=== PATIENT | female | born 1960 | race Caucasian/White ===

== ENCOUNTER 2018-06-25 07:41 | Day surgery (SDC) | payer OTHER ==
--- OUTSIDE RECORDS SUMMARY | 2018-06-25 07:45 | XMS REPORT | Clinical Summary ---
:1960 Author Organization [facility] Address [address] [place] [address] Care Team Providers Name Role Phone Dave Viveros MD Primary Care Provider Allergies No Known Allergies Medications Medication Sig Dispensed Refills Start Date End Date Status meloxicam (MOBIC) 15 Take 15 mg by 0 Active mg tablet mouth daily. escitalopram (LEXAPRO) Take 10 mg by 0 Active 10 MG tablet mouth daily. estradiol (ESTRACE) 1 Take 1 mg by 0 Active MG tablet mouth daily. levothyroxine Take 88 mcg by 0 Active (SYNTHROID, LEVOXYL) mouth every 88 mcg tablet morning. pantoprazole Take 40 mg by 0 Active (PROTONIX) 40 MG EC mouth daily. tablet cycloSPORINE Administer 1 0 Active (RESTASIS) 0.05 % drop to both ophthalmic emulsion eyes 2 (two) times a day. fluticasone (FLONASE) 2 sprays by Each 0 Active 50 mcg/actuation nasal Nare route spray daily. clonAZEPAM (KlonoPIN) Take 0.5 mg by 0 Active 0.5 MG tablet mouth nightly as needed for seizures. cyclobenzaprine Take 5 mg by 0 Active (FLEXERIL) 5 mg tablet mouth 2 (two) times a day as needed for muscle spasms (at night). losartan (COZAAR) 25 Take 25 mg by 0 Active MG tablet mouth daily. meclizine (ANTIVERT) Take 1 tablet 30 tablet 0 11/25/2017 12/25/2017 25 mg tablet (25 mg total) by mouth 3 (three) times a day as needed for dizziness for up to 30 days. ondansetron ODT Take 1 tablet (4 30 tablet 0 11/25/2017 12/02/2017 (ZOFRAN ODT) 4 MG mg total) by disintegrating tablet mouth every 8 (eight) hours as needed for nausea or vomiting for up to 7 days. Active Problems Problem Noted Date Intractable episodic headache 12/30/2017 Encounters Date Type Specialty Care Team Description 12/31/2017 Telephone Ophthalmology Mariza Serrato MD 12/30/2017 - Emergency Neurology [place], Intractable episodic headache, unspecified headache type (Primary Dx); 12/31/2017 MD Thomas Intractable episodic cluster headache Rizwan Lucas MD 11/25/2017 Emergency Emergency Medicine [facility] Acute nonintractable headache, unspecified headache type (Primary Dx); MD Ethel Dizziness after 06/24/2017 Family History Medical History Relation Name Comments Diabetes Father Heart disease Father Hypertension Father Hyperlipidemia Mother Relation Name Status Comments Father Alive Mother Alive Social History Tobacco Use Types Packs/Day Years Used Date Never Smoker Smokeless Tobacco: Never Used Alcohol Use Drinks/Week oz/Week Comments No Sex Assigned at Date Recorded Not on file Job Start Date Occupation Industry Not on file Not on file Not on file Travel History Travel Start Travel End No recent travel history available. Last Filed Vital Signs Vital Sign Reading Time Taken Blood Pressure 129/60 12/31/2017 7:31 PM CDT Pulse 72 12/31/2017 7:31 PM CDT Temperature 36.3 C (97.3 F) 12/31/2017 4:29 PM CDT Respiratory Rate 18 12/31/2017 7:31 PM CDT Oxygen Saturation 96% 12/31/2017 7:31 PM CDT Inhaled Oxygen Concentration - - Weight 79.4 kg (175 lb) 12/30/2017 8:37 PM CDT Height 160 cm (5' 3") 12/30/2017 3:25 PM CDT Body Mass Index 31 12/30/2017 8:37 PM CDT Plan of Treatment Health Maintenance Due Date Last Done Comments CERVICAL CANCER SCREENING 1983 BREAST CANCER SCREENING 2012 COLON CANCER SCREENING 2012 SHINGLES VACCINES (#1) 2012 INFLUENZA VACCINE 10/21/2018 12/21/2016 Procedures Procedure Name Priority Date/Time Associated Comments Diagnosis SYPHILIS TREPONEMAL Routine 12/31/2017 2:35 Results for this IGG PM CDT procedure are in the results section. TROPONIN Routine 12/31/2017 2:35 Results for this PM CDT procedure are in the results section. SEDIMENTATION RATE STAT 12/30/2017 11:15 Results for this PM CDT procedure are in the results section. MRI BRAIN W WO STAT 12/30/2017 10:02 Results for this CONTRAST PM CDT procedure are in the results section. MRA NECK W WO CONTRAST STAT 12/30/2017 9:50 Results for this PM CDT procedure are in the results section. MRA HEAD WO CONTRAST STAT 12/30/2017 9:20 Results for this PM CDT procedure are in the results section. C-REACTIVE PROTEIN STAT 12/30/2017 8:59 Results for this PM CDT procedure are in the results section. URINE DRUGS OF ABUSE Routine 12/30/2017 7:29 Results for this SCREEN PM CDT procedure are in the results section. CT HEAD WO CONTRAST STAT 12/30/2017 5:00 Results for this PM CDT procedure are in the results section. ESTIMATED GFR STAT 12/30/2017 3:50 Results for this PM CDT procedure are in the results section. COMPREHENSIVE STAT 12/30/2017 3:50 Results for this METABOLIC PANEL PM CDT procedure are in the results section. HC COMPLETE BLD COUNT STAT 12/30/2017 3:50 Results for this W/AUTO DIFF PM CDT procedure are in the results section. CT HEAD WO CONTRAST STAT 11/25/2017 2:11 Results for this PM CDT procedure are in the results section. SEDIMENTATION RATE STAT 11/25/2017 1:51 Results for this PM CDT procedure are in the results section. C-REACTIVE PROTEIN STAT 11/25/2017 1:51 Results for this PM CDT procedure are in the results section. ZZESTIMATED GFR STAT 11/25/2017 1:51 Results for this PM CDT procedure are in the results section. B NATRIURETIC PEPTIDE STAT 11/25/2017 1:51 Results for this PM CDT procedure are in the results section. TROPONIN STAT 11/25/2017 1:51 Results for this PM CDT procedure are in the results section. COMPREHENSIVE STAT 11/25/2017 1:51 Results for this METABOLIC PANEL PM CDT procedure are in the results section. HC COMPLETE BLD COUNT STAT 11/25/2017 1:51 Results for this W/AUTO DIFF PM CDT procedure are in the results section. ECG 12-LEAD STAT 11/25/2017 1:24 Results for this PM CDT procedure are in the results section. after 06/24/2017 Results Syphilis treponemal IgG (12/31/2017 2:35 PM CDT) Syphilis treponemal IgG Non-reactiveComment: Non-reactive [facility] DEPARTMENT OF Non-reactive: No PATHOLOGY AND GENOMIC serological evidence of MEDICINE Syphilis infection Specimen Serum Performing Organization Address [facility] Phone Number [facility] DEPARTMENT OF PATHOLOGY AND [address] [place] [address] Troponin (12/31/2017 2:35 PM CDT)Only the most recent of2 resultswithin the time period is included. Troponin <0.30 0.00 - 0.30 ng/mL [facility] DEPARTMENT OF PATHOLOGY Comment: AND GENOMIC MEDICINE 0.30 - 1.49 ng/mlMay indicate increased risk of acute coronary syndrome. >=1.5 ng/mlConsistent with acute myocardial infarction. The diagnostic value of a single normal or non-diagnostic result is questionable.Serial samples at 2-6 hour intervals are required to rule out acute myocardial injury. Specimen Plasma specimen Performing Organization Address [facility] Phone Number [facility] DEPARTMENT OF PATHOLOGY AND [address] [place] [address] Sedimentation rate (12/30/2017 11:15 PM CDT)Only the most recent of2 resultswithin the time period is included. Sedimentation rate 14 0 - 20 mm/hr [facility] DEPARTMENT OF PATHOLOGY AND [employer] [facility] Specimen Blood Performing Organization Address [facility] Phone Number [facility] DEPARTMENT OF PATHOLOGY AND [address] [place] [address] MRI Brain W Wo Contrast (12/30/2017 10:02 PM CDT) Narrative Performed At EXAMINATION: MRI BRAIN W WO CONTRAST [facility] CLINICAL HISTORY: Focal neuro deficit6 hrsstroke suspected COMPARISON:Head CT 12/30/2017. TECHNIQUE: Multiplanar and multisequence MRI imaging of the brain was obtained with and without contrast. FINDINGS: No diffusion restriction to suggest acute ischemia. Pre and postcontrast enhanced images shows no intracranial mass or abnormal enhancing brain lesion. No abnormal susceptibility to suggest intracranial hemorrhage. Brain volume is normal. Incidental note of a prominent perivascular space in the right parietal subcortical white matter. No acute hydrocephalus or extra-axial fluid collection identified. Midline structures are maintained. Major flow voids in the skull base are identified. Incidental very small left medial parietal deep venous anomaly. Paranasal sinuses and mastoid air cells are clear. Orbits are normal. Visualized soft tissue shows no gross abnormalities. IMPRESSION: No acute intracranial abnormality. No acute ischemia or intracranial hemorrhage. [facility]-[id number] Procedure Note Interface, Radiology Results Incoming - 12/30/2017 10:22 PM CDT EXAMINATION: MRI BRAIN W WO CONTRAST CLINICAL HISTORY: Focal neuro deficit 6 hrs stroke suspected COMPARISON: Head CT 12/30/2017. TECHNIQUE: Multiplanar and multisequence MRI imaging of the brain was obtained with and without contrast. FINDINGS: No diffusion restriction to suggest acute ischemia. Pre and postcontrast enhanced images shows no intracranial mass or abnormal enhancing brain lesion. No abnormal susceptibility to suggest intracranial hemorrhage. Brain volume is normal. Incidental note of a prominent perivascular space in the right parietal subcortical white matter. No acute hydrocephalus or extra-axial fluid collection identified. Midline structures are maintained. Major flow voids in the skull base are identified. Incidental very small left medial parietal deep venous anomaly. Paranasal sinuses and mastoid air cells are clear. Orbits are normal. Visualized soft tissue shows no gross abnormalities. IMPRESSION: No acute intracranial abnormality. No acute ischemia or intracranial hemorrhage. [facility]-[id number] Performing Organization Address City/State/Zipcode Phone Number [facility] [address] [place] [address] MRA Neck W Wo Contrast (12/30/2017 9:50 PM CDT) Narrative Performed At EXAMINATION:MRA NECK W WO CONTRAST [facility] CLINICAL HISTORY:Headachesuddencarotid vertebral dissection suspected COMPARISON:None. TECHNIQUE: Neck MRA using 2D and 3D dwfc-ce-tdsuzz technique with without contrast with multi-planar MIP and 3D reconstruction. Multiplanar T1 fat sat images were also obtained. FINDINGS: The imaged bilateral cervical carotid and vertebral arterial systems appear widely patent without evidence of stenosis (0% by NASCET criteria) or dissection. Dominant right vertebral artery. IMPRESSION: Unremarkable neck MRA with no significant carotid or vertebral artery stenosis. [id number] Procedure Note Interface, Radiology Results Incoming - 12/30/2017 10:10 PM CDT EXAMINATION: MRA NECK W WO CONTRAST CLINICAL HISTORY: Headache sudden carotid vertebral dissection suspected COMPARISON: None. TECHNIQUE: Neck MRA using 2D and 3D ztqc-ex-[id number] technique with without contrast with multi-planar MIP and 3D reconstruction. Multiplanar T1 fat sat images were also obtained. FINDINGS: The imaged bilateral cervical carotid and vertebral arterial systems appear widely patent without evidence of stenosis (0% by NASCET criteria) or dissection. Dominant right vertebral artery. IMPRESSION: Unremarkable neck MRA with no significant carotid or vertebral artery stenosis. [id number] Performing Organization Address [facility] Phone Number [facility] [address] [place] [address] MRA Head Wo Contrast (12/30/2017 9:20 PM CDT) Addenda Addendum by Santiago Bradshaw MD on 12/31/2017 12:48 AM ADDENDUM #1 A saccular aneurysm is not identified. Narrative Performed At EXAMINATION: MRA HEAD WO CONTRAST [facility] CLINICAL HISTORY: Headachechronicneuro deficit COMPARISON:None TECHNIQUE: Syuf-hm-aysbou MRA images of the [place] vessels were obtained with multiplanar and 3-D reconstructive algorithms. FINDINGS: The internal carotid arteries and bifurcations into the middle cerebral and anterior cerebral arteries are patent without significant stenosis. The vertebral arteries and basilar artery as well as the posterior cerebral arteries are patent with no significant stenosis. IMPRESSION: Unremarkable MRA of the [place] with no significant abnormality. [facility]-[id number] Procedure Note Interface, Radiology Results Incoming - 12/30/2017 10:05 PM CDT EXAMINATION: MRA HEAD WO CONTRAST CLINICAL HISTORY: Headache chronic neuro deficit COMPARISON: None TECHNIQUE: Clxh-wy-emqoah MRA images of the [place] vessels were obtained with multiplanar and 3-D reconstructive algorithms. FINDINGS: The internal carotid arteries and bifurcations into the middle cerebral and anterior cerebral arteries are patent without significant stenosis. The vertebral arteries and basilar artery as well as the posterior cerebral arteries are patent with no significant stenosis. IMPRESSION: Unremarkable MRA of the [place] with no significant abnormality. [facility]-[id number] Performing Organization Address [facility] Phone Number [facility] [address] [place] [address] C-reactive protein (12/30/2017 8:59 PM CDT)Only the most recent of2 resultswithin the time period is included. CRP 1.97 (H) 0.00 - 0.50 mg/dL [facility] DEPARTMENT OF PATHOLOGY AND GENOMIC MEDICINE Specimen Plasma specimen Performing Organization Address [facility] Phone Number [facility] DEPARTMENT OF PATHOLOGY AND [address] [place] [address] Urine drugs of abuse screen (12/30/2017 7:29 PM CDT) Amphetamine screen, urine Negative [facility] DEPARTMENT OF PATHOLOGY AND GENOMIC MEDICINE Barbiturate screen, urine Negative [facility] DEPARTMENT OF PATHOLOGY AND GENOMIC MEDICINE Benzodiazepine screen, Negative [facility] DEPARTMENT OF urine PATHOLOGY AND GENOMIC MEDICINE Cannabinoid screen, urine Negative [facility] DEPARTMENT OF PATHOLOGY AND GENOMIC MEDICINE Cocaine screen, urine Negative [facility] DEPARTMENT OF PATHOLOGY AND GENOMIC MEDICINE Methadone metabolite Negative [facility] DEPARTMENT OF (EDDP), urine PATHOLOGY AND GENOMIC MEDICINE Opiates screen, urine Positive (A) [facility] DEPARTMENT OF PATHOLOGY AND GENOMIC MEDICINE Oxycodone screen, urine Negative [facility] DEPARTMENT OF PATHOLOGY AND GENOMIC MEDICINE Phencyclidine screen, urine Negative [facility] DEPARTMENT OF PATHOLOGY AND GENOMIC MEDICINE Tricyclic screen, urine Negative [facility] DEPARTMENT OF Comment: PATHOLOGY AND GENOMIC Drug screen minimum concentration of detectability MEDICINE Fgurfdkqkima4239 ng/mL Barbiturates 200 ng/mL Foqwyhyjdrqispd183 ng/mL Bthhwub478 ng/mL Jupjdqadl443 ng/mL Kbmojot923 ng/mL Felkgkfom224 ng/mL Phencyclidine 25 ng/mL Fvowpemxvguv61 ng/mL Obuvybcthk2413 ng/mL Negative test results indicates presumptive evidence of lack of clinically significant drug concentration in this urine specimen. Positive test results are presumptive evidence of clinically significant drug concentration in this urine specimen. Testing performed for medical purposes only. Specimen Urine Performing Organization Address [facility] Phone Number [facility] DEPARTMENT OF PATHOLOGY AND [address] [place] [address] CT Head Wo Contrast (12/30/2017 5:00 PM CDT)Only the most recent of2 resultswithin the time period is included. Narrative Performed At EXAMINATION: CT HEAD WO CONTRAST [facility] CLINICAL HISTORY: headache COMPARISON:CT brain from November 25, 2017 TECHNIQUE: Noncontrast enhanced images of the brain were obtained from the skull base to the vertex. Both soft tissue and bone reconstruction algorithms were performed.CT scans are performed using radiation dose reduction techniques. Technical factors are evaluated and adjusted to ensure appropriate moderation of exposure. Automated dose management technology is applied to adjust radiation exposure while achieving a diagnostic quality image. FINDINGS: Artifacts obscure some details. There is no definite evidence of acute intracranial hemorrhage or mass, hydrocephalus or midline shift, stroke or thrombus in the vessels. There is nonspecific enlargement of the extra axial space greater in the anterior region. There is relatively stable small area of decreased density in the right parietal subcortical white matter which could be from a perivascular space or small region of chronic change among other etiologies. There is minimal calcification of waller of some of the arteries. The orbits, sinuses and mastoid air cells do not show acute abnormality. There is stable nonspecific increased bone density. IMPRESSION: No acute intracranial abnormality identified. [facility]-[id number] Procedure Note Interface, Radiology Results Incoming - 12/30/2017 5:23 PM CDT EXAMINATION: CT HEAD WO CONTRAST CLINICAL HISTORY: headache COMPARISON: CT brain from November 25, 2017 TECHNIQUE: Noncontrast enhanced images of the brain were obtained from the skull base to the vertex. Both soft tissue and bone reconstruction algorithms were performed. CT scans are performed using radiation dose reduction techniques. Technical factors are evaluated and adjusted to ensure appropriate moderation of exposure. Automated dose management technology is applied to adjust radiation exposure while achieving a diagnostic quality image. FINDINGS: Artifacts obscure some details. There is no definite evidence of acute intracranial hemorrhage or mass, hydrocephalus or midline shift, stroke or thrombus in the vessels. There is nonspecific enlargement of the extra axial space greater in the anterior region. There is relatively stable small area of decreased density in the right parietal subcortical white matter which could be from a perivascular space or small region of chronic change among other etiologies. There is minimal calcification of [place] of some of the arteries. The orbits, sinuses and mastoid air cells do not show acute abnormality. There is stable nonspecific increased bone density. IMPRESSION: No acute intracranial abnormality identified. [facility]-[id number] Performing Organization Address City/State/Zipcode Phone Number [facility] [address] [place] [address] Estimated GFR (12/30/2017 3:50 PM CDT) Estimated GFR 80 mL/min/1.73 m2 [facility] DEPARTMENT OF Comment: PATHOLOGY AND GENOMIC CatergoryUnitsInterpretation MEDICINE G1 >=90 Normal or high G2 60-89Mildly decreased N1j29-89Edbtkh to moderately decreased L7b90-06Tkgsyrvivy to severely decreased G4 15-29Severely decreased G5 <15Kidney failure The eGFR was calculated using the Chronic Kidney Disease Epidemiology Collaboration (CKD-EPI) equation. Interpretation is based on recommendations of the National Kidney Foundation-Kidney Disease Outcomes Quality Initiative (NKF-KDOQI) published in 2014. Specimen Plasma specimen Performing Organization Address City/State/Zipcode Phone Number [facility] DEPARTMENT OF PATHOLOGY AND [address] [place] [address] [facility] CBC with platelet and differential (12/30/2017 3:50 PM CDT)Only the most recent of2 resultswithin the time period is included. WBC 9.42 4.50 - 11.00 k/uL [facility] DEPARTMENT OF PATHOLOGY AND GENOMIC MEDICINE RBC 3.93 (L) 4.20 - 5.50 m/uL [facility] DEPARTMENT OF PATHOLOGY AND GENOMIC MEDICINE HGB 12.8 12.0 - 16.0 g/dL [facility] DEPARTMENT OF PATHOLOGY AND GENOMIC MEDICINE HCT 36.9 (L) 37.0 - 47.0 % [facility] DEPARTMENT OF PATHOLOGY AND GENOMIC MEDICINE MCV 93.9 82.0 - 100.0 fL [facility] DEPARTMENT OF PATHOLOGY AND GENOMIC MEDICINE MCH 32.6 27.0 - 34.0 pg [facility] DEPARTMENT OF PATHOLOGY AND GENOMIC MEDICINE MCHC 34.7 31.0 - 37.0 g/dL [facility] DEPARTMENT OF PATHOLOGY AND GENOMIC MEDICINE RDW - SD 42.0 37.0 - 55.0 fL [facility] DEPARTMENT OF PATHOLOGY AND GENOMIC MEDICINE MPV 9.1 8.8 - 13.2 fL [facility] DEPARTMENT OF PATHOLOGY AND GENOMIC MEDICINE Platelet count 230 150 - 400 k/uL [facility] DEPARTMENT OF PATHOLOGY AND GENOMIC MEDICINE Nucleated RBC 0.00 /100 WBC [facility] DEPARTMENT OF PATHOLOGY AND GENOMIC MEDICINE Neutrophils 61.0 39.0 - 69.0 % [facility] DEPARTMENT OF PATHOLOGY AND GENOMIC MEDICINE Lymphocytes 29.4 25.0 - 45.0 % [facility] DEPARTMENT OF PATHOLOGY AND GENOMIC MEDICINE Monocytes 7.1 0.0 - 10.0 % [facility] DEPARTMENT OF PATHOLOGY AND GENOMIC MEDICINE Eosinophils 2.0 0.0 - 5.0 % [facility] DEPARTMENT OF PATHOLOGY AND GENOMIC MEDICINE Basophils 0.3 0.0 - 1.0 % [facility] DEPARTMENT OF PATHOLOGY AND GENOMIC MEDICINE Immature granulocytes 0.2Comment: 0.0 - 1.0 % [facility] DEPARTMENT OF "Immature PATHOLOGY AND GENOMIC granulocytes" MEDICINE (promyelocytes, myelocytes, metamyelocytes) Specimen Blood Performing Organization Address City/[facility] Phone Number [facility] DEPARTMENT PATHOLOGY AND [address] [place] [address] [facility] MEDICINE Comprehensive metabolic panel (12/30/2017 3:50 PM CDT)Only the most recent of2 resultswithin the time period is included. Sodium 140 135 - 148 mEq/L [facility] DEPARTMENT OF PATHOLOGY AND GENOMIC MEDICINE Potassium 4.0 3.5 - 5.0 mEq/L [facility] DEPARTMENT OF PATHOLOGY AND GENOMIC MEDICINE Chloride 100 98 - 112 mEq/L [facility] DEPARTMENT OF PATHOLOGY AND GENOMIC MEDICINE CO2 29 24 - 31 mEq/L [facility] DEPARTMENT OF PATHOLOGY AND GENOMIC MEDICINE Anion gap 11@ANIO 7 - 15 mEq/L [facility] DEPARTMENT OF PATHOLOGY AND GENOMIC MEDICINE BUN 15 6 - 20 mg/dL [facility] DEPARTMENT OF PATHOLOGY AND GENOMIC MEDICINE Creatinine 0.82 0.50 - 0.90 mg/dL [facility] DEPARTMENT OF PATHOLOGY AND GENOMIC MEDICINE Glucose 113 (H) 65 - 99 mg/dL [facility] DEPARTMENT OF PATHOLOGY AND GENOMIC MEDICINE Calcium 9.4 8.3 - 10.2 mg/dL [facility] DEPARTMENT OF PATHOLOGY AND GENOMIC MEDICINE Protein 6.9 6.3 - 8.3 g/dL [facility] DEPARTMENT OF Comment: PATHOLOGY AND GENOMIC 4.6-7.0 g/dL MEDICINE 1 week 4.4-7.6 g/dL 7 months-1year5.1-7.3 g/dL 1-2 years5.6-7.5 g/dL >3 years6.0-8.0 g/dL 18-150 6.3-8.3 g/dL Albumin 3.4 (L) 3.5 - 5.0 g/dL [facility] DEPARTMENT OF PATHOLOGY AND GENOMIC MEDICINE A/G ratio 1.0 0.7 - 3.8 [facility] DEPARTMENT OF PATHOLOGY AND GENOMIC MEDICINE Alkaline phosphatase 94 35 - 104 U/L [facility] DEPARTMENT OF PATHOLOGY AND GENOMIC MEDICINE AST 28 10 - 35 U/L [facility] DEPARTMENT OF PATHOLOGY AND GENOMIC MEDICINE ALT 34 5 - 50 U/L [facility] DEPARTMENT OF PATHOLOGY AND GENOMIC MEDICINE Total bilirubin <0.2 0.0 - 1.2 mg/dL [facility] DEPARTMENT OF PATHOLOGY AND GENOMIC MEDICINE Specimen Plasma specimen Performing Organization Address City/[facility]/Zipcode Phone Number [facility] DEPARTMENT OF PATHOLOGY AND [address] Estimated GFR (11/25/2017 1:51 PM CDT) GFR Non Af Amer 87 mL/min/1.73 m2 [facility] DEPARTMENT OF PATHOLOGY AND GENOMIC MEDICINE GFR Af Amer >90 mL/min/1.73 m2 [facility] DEPARTMENT OF Comment: PATHOLOGY AND GENOMIC Chronic kidney disease: <60 mL/min/1.73m2 MEDICINE Kidney failure: <15 mL/min/1.73m2 The estimated GFR is calculated from the IDMS-traceable Modification of Diet in Renal Disease Equation. The accuracy of the calculation is poor when the creatinine is normal. Calculated values >90 mL/min/1.73m2 are not reported. This equation has not been validated in children (<18 years), women, the elderly (>70 years), or ethnic groups other than Caucasians and Americans. Specimen Plasma specimen Performing Organization Address City/State/Zipcode Phone Number [facility] DEPARTMENT OF PATHOLOGY AND [address] B natriuretic peptide (11/25/2017 1:51 PM CDT) BNP 12 0 - 100 pg/mL [facility] DEPARTMENT OF PATHOLOGY AND GENOMIC MEDICINE Specimen Blood Performing Organization Address City/[facility] Phone Number [facility] DEPARTMENT OF PATHOLOGY AND [address] [place] [address] ECG 12 lead (11/25/2017 1:24 PM CDT) Ventricular rate 81 [facility] Atrial rate 81 [facility] AL interval 152 [facility] QRSD interval 94 [facility] QT interval 396 [facility] QTC interval 460 [facility] P axis 1 52 [facility] QRS axis 1 41 [facility] T wave axis 25 [facility] MUSE EKG impression Normal sinus rhythm-Normal ECG-No previous [facility] MUSE ECGs available- Performing Organization Address City/State/Zipcode Phone Number [facility] [address] [place] [address] after 06/24/2017 Insurance Payer Benefit Plan / Group Subscriber ID Type Phone Address [employer] [place] OPEN ACCESS/NETWORK xxxxxxxxxxx HMO Advance Directives Patient has advance care planning documents on file. For more information, please contact:Chaka [id number] [place] [address]
[2018-06-25] MEDS: OXYMETAZOLINE HCL 0.05% 15ML NAS ONE ×3 (07:53→08:05)
[2018-06-25] MEDS ORDERED: Ringers Lactate 1,000 ML IV ONE (08:02)
[2018-06-25] MEDS ORDERED: LIDOCAINE 1.5% W/EPI AMP 5 ML ONE (08:16)
[2018-06-25] MEDS ORDERED: OXYMETAZOLINE HCL 0.05% 15ML NAS ONE (08:16)
[2018-06-25] MEDS ORDERED: NA CHLORIDE 0.9% 500 ML ONE (08:16)
[2018-06-25] MEDS ORDERED: ROCURONIUM 50 MG/5 ML VIAL IV ONE (08:44)
[2018-06-25] MEDS ORDERED: LIDOCAINE 2% MPF 5 ML VIAL ONE (08:44)
[2018-06-25] MEDS ORDERED: MIDAZOLAM HCL 2 MG/2 ML INJ ONE (08:44)
[2018-06-25] MEDS ORDERED: PROPOFOL 200 MG/20 ML VIAL IV ONE (08:44)
[2018-06-25] MEDS ORDERED: FENTANYL CITR 100 MCG/2 ML ONE ×2 (08:44→10:26)
[2018-06-25] MEDS ORDERED: ONDANSETRON 4 MG/2 ML VIAL ONE (08:44)
[2018-06-25] MEDS ORDERED: DEXAMETHASONE 10 MG/ML VIAL ONE (08:44)
[2018-06-25] MEDS ORDERED: EPHEDRINE SULF 50 MG/ML VIAL ONE (09:23)
--- NOTE | 2018-06-25 10:02 | P.BOP ---
Preoperative diagnosis: CRS Postoperative diagnosis: same Primary procedure: NE w B maxillary antrostomy and L anterior ethmoidectomy/ césar Stain Dipper: NONE,NONE Estimated blood loss: 10ml Specimen: sinonasal shavings Findings: B accessory os Anesthesia: General Complications: None Implants: Xerogel sinus dressing Fluids & blood products: 900ml Transferred to: Recovery Room Condition: Good
[2018-06-25] MEDS ORDERED: FENTANYL CITR 100 MCG/2 ML IV ONE (10:15)
--- NOTE | 2018-06-27 19:10 | OP ---
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 It was unclear whether this accessory os was the result of the prior balloon dilation or was a congenital formation. The risks, benefits, and alternatives to the procedure were discussed with the patient, who agreed to proceed. Description Of Procedure: The patient was brought to the operating room. She was placed under general anesthesia via oral endotracheal tube. The head of bed was turned 90 degrees. Nasal hairs were trimmed and the patient was draped in a standard fashion for sinus surgery. Nasal pledgets soaked in Afrin were placed in the nasal cavity. After several minutes, these were removed and a 0- degree endoscope was used to perform a nasal endoscopy. The right uncinate process was visualized. There was an accessory os visible. The uncinate process was palpated using a maxillary seeker, then removed using a 90-degree Blakesley and a backbiter. After removal, the natural os was visualized and the tissue bridge the natural from the secondary os was removed using a 90-degree Blakesley. Afrin-soaked pledgets were applied to the middle meatus and attention was turned to the left side. The ethmoid bulla was noted to be wide, concurrence with preoperative imaging. A sickle knife was used to incise the head of the middle turbinate and curved endoscopic scissors were used to divide the upper and lower portions of the césar bullosa. The lateral aspect of the césar bullosa was then removed. On review of preoperative imaging, the anterior ethmoid nasal mucosa was moderately edematous and limited anterior ethmoidectomy was performed by opening up the bulla and removal of small ethmoid partitions. The maxillary antrostomy was created by removal of the uncinate processes using a backbiter and 90-degree Blakesley. The secondary and natural os were identified and the tissue bridge them was removed and the opening was refined using the 90-degree Blakesley. After adequate dissection, Afrin-soaked pledgets were placed in middle meatus for several minutes to aid with bleeding. These were later removed and a XeroGel dressing was placed into the bilateral middle meatus and soaked with saline. The nasopharynx was thoroughly suctioned and the patient was returned to care of anesthesia for awakening and extubation in the operating room, which proceeded without difficulty. Complications: None. Followup: The patient will follow up with Dr. Lindsey's office in 10-12 days for operative debridement and evaluation of healing. RHEA/SCOTTY Voice ID: [id number] Report ID: [id number] MTDTank
--- NOTE | 2018-06-29 11:04 | EKG ---
Test Date: 2018-06-21 Test Time: 14:52:02 Library Clerk Talking Books: CARO MEASUREMENT RESULTS: Intervals: Rate: 61 NC: 166 QRSD: 98 QT: 444 QTc: 446 [place]: P: 64 NC: 166 QRS: 52 T: 38 INTERPRETIVE STATEMENTS: Normal sinus rhythm Possible Left atrial enlargement Borderline ECG No previous ECG available for comparison Electronically Signed On 06-21-18 16:59:23 CDT by Reece Sevilla
== END 2018-06-25 11:30 | disposition home or self-care (01) ==
LOC: OR 07:41
PROVIDERS: ATTEND Otolaryngology
PROC: 09BV8ZZ Excision of Left Ethmoid Sinus, Via Natural or Artificial Opening Endoscopic (ICD-10-PCS; 2018-06-25)
PROC: 09BR8ZZ Excision of Left Maxillary Sinus, Via Natural or Artificial Opening Endoscopic (ICD-10-PCS; 2018-06-25)
PROC: 09TL8ZZ Resection of Nasal Turbinate, Via Natural or Artificial Opening Endoscopic (ICD-10-PCS; principal; 2018-06-25 09:30)
DX: J32.0 Chronic maxillary sinusitis (principal); J34.89 Other specified disorders of nose and nasal sinuses; E03.9 Hypothyroidism, unspecified; I10 Essential (primary) hypertension; K21.9 Gastro-esophageal reflux disease without esophagitis; M35.00 Sjogren syndrome, unspecified; F32.9 Major depressive disorder, single episode, unspecified; Z79.1 Long term (current) use of non-steroidal anti-inflammatories (NSAID); Z79.899 Other long term (current) drug therapy
CPT/HCPCS: 88304; 88311; 93005; J1100; J2001; J2250; J2405; J2704; J3010